=== PATIENT | female | born 1960 | race African-American/Black ===

== ENCOUNTER 2017-06-14 18:26 | Inpatient (IN) | payer BC ==
[~2017-06-14] VITALS: Ht 157.5 cm; Wt 58.0 kg
[2017-06-14 19:04] LABS: COLLECTION METHOD CLEAN CATCH
[2017-06-14 19:15] LABS: PH 5 (5-8); URINE APPEARANCE Hazy; URINE BILIRUBIN Negative (NEGATIVE); URINE BLOOD 2+ (NEGATIVE); URINE COLOR Yellow; URINE GLUCOSE Negative (NEGATIVE); URINE KETONE Trace (NEGATIVE); URINE LEUKOCYTE ESTERASE 1+ (NEGATIVE); URINE NITRATE Positive (NEGATIVE); URINE PROTEIN(semi-quant) 1+ (NEGATIVE); URINE UROBILINOGEN Negative (NEGATIVE)
[2017-06-14 19:22] LABS: MUCOUS Present /lpf; URINE BACTERIA Many /hpf
[2017-06-14 19:23] LABS: URINE RBC 0-2 /hpf
[2017-06-14 19:35] LABS: BASO # 0.1 (0.0-0.2); BASO % 0.4 % (0.0-2.0); EOS # 0.1 (0.0-0.7); EOS % 0.3 % (0-4.0); GRAN # 19.6 (1.4-6.5); GRAN % 83.1 % (42.2-75.2); HEMATOCRIT 41.1 % (37.0-47.0); HEMOGLOBIN 13.9 g/dl (12.5-16.0); LYMPH # 2.5 (1.2-3.4); LYMPH % 10.6 % (20.0-51.0); MEAN CELL VOLUME 99 fl (80.0-100.0); MEAN CORPUSCULAR HEMOGLOBIN 34 pg (27.0-31.0); MEAN CORPUSCULAR HGB CONC 34 g/dl (33.0-37.0); MEAN PLATELET VOLUME 11.6 fl (7.4-10.4); MONO # 1.2 (0.1-0.6); MONO % 5.1 % (1.7-9.3); PLATELET COUNT 144 K/mm3 (130-400); RED BLOOD COUNT 4.15 M/mm3 (4.10-5.30)
[2017-06-14] MEDS ORDERED: FISH OIL 500 M1 EAC1 PO (19:43)
[2017-06-14 20:08] LABS: ALBUMIN 4.4 gm/dL (3.5-5.0); BILIRUBIN,TOTAL 1.2 mg/dL (0.0-1.0); CALCIUM 9.6 mg/dL (8.4-10.2); CREATININE, serum 0.76 mg/dL (0.52-1.25); TOTAL PROTEIN 7.9 gm/dL (6.4-8.2)
[2017-06-14 20:25] LABS: C-REACTIVE PROTEIN 15.9 mg/dL (0.0-0.9)
[2017-06-14 22:35] VITALS: BP 96/63; PULSE 91; TEMP 97.7
[2017-06-15 04:08] VITALS: BP 94/61; PULSE 89; TEMP 98.9
[2017-06-15 06:20] LABS: BASO # 0.1 (0.0-0.2); BASO % 0.4 % (0.0-2.0); EOS # 0.1 (0.0-0.7); EOS % 0.6 % (0-4.0); GRAN % 81.3 % (42.2-75.2); LYMPH # 1.8 (1.2-3.4); MEAN CELL VOLUME 100 fl (80.0-100.0); MEAN CORPUSCULAR HGB CONC 33 g/dl (33.0-37.0); MEAN PLATELET VOLUME 11.1 fl (7.4-10.4); MONO # 1.3 (0.1-0.6); MONO % 7.1 % (1.7-9.3); PLATELET COUNT 187 K/mm3 (130-400); RED BLOOD COUNT 3.46 M/mm3 (4.10-5.30)
[2017-06-15 06:37] LABS: HEMATOCRIT 34.7 % (37.0-47.0); HEMOGLOBIN 11.4 g/dl (12.5-16.0); MEAN CORPUSCULAR HEMOGLOBIN 33 pg (27.0-31.0)
[2017-06-15 06:44] LABS: CALCIUM 8.9 mg/dL (8.4-10.2); CREATININE, serum 0.78 mg/dL (0.52-1.25)
[2017-06-15 08:03] VITALS: BP 100/61; PULSE 82; TEMP 98.7
[2017-06-15 10:35] VITALS: BP 96/60; PULSE 89; TEMP 98.6
[2017-06-15 15:52] VITALS: BP 105/64; PULSE 77; TEMP 97.9
[2017-06-15 20:12] VITALS: BP 112/74; PULSE 78; TEMP 98.4
[2017-06-16 00:04] VITALS: BP 91/55; PULSE 68; TEMP 98.8
[2017-06-16 03:39] VITALS: BP 109/58; PULSE 78; TEMP 98.7
[2017-06-16 06:31] LABS: BASO % 0.3 % (0.0-2.0); EOS # 0.1 (0.0-0.7); GRAN # 8.5 (1.4-6.5); GRAN % 71.2 % (42.2-75.2); LYMPH # 2.4 (1.2-3.4); MEAN CELL VOLUME 102 fl (80.0-100.0); MEAN CORPUSCULAR HGB CONC 32 g/dl (33.0-37.0); MONO # 0.9 (0.1-0.6); MONO % 7.2 % (1.7-9.3); PLATELET COUNT 178 K/mm3 (130-400); RED BLOOD COUNT 3.11 M/mm3 (4.10-5.30)
[2017-06-16 06:53] LABS: CALCIUM 8.5 mg/dL (8.4-10.2); CREATININE, serum 0.71 mg/dL (0.52-1.25); POTASSIUM 3.8 mmol/L (3.4-5.0)
[2017-06-16 06:58] LABS: HEMATOCRIT 31.6 % (37.0-47.0); HEMOGLOBIN 10.2 g/dl (12.5-16.0); MEAN CORPUSCULAR HEMOGLOBIN 33 pg (27.0-31.0)
[2017-06-16 08:39] VITALS: BP 119/64; PULSE 67; TEMP 98.6
[2017-06-16] MEDS ORDERED: FLAGYL500 MG PO (11:09)
[2017-06-16] MEDS ORDERED: CIPRO 500MG TA500 MG PO (11:09)
[2017-06-16] MEDS ORDERED: NORCO 325 MG-51 TAB PO (11:10)
[2017-06-16 11:52] VITALS: BP 101/62; PULSE 62; TEMP 98.8
== END 2017-06-16 13:15 | disposition home or self-care (01) | DRG 392 ==
LOC: COL.ER 18:26 → MEDICAL 21:22
PROVIDERS: Family Medicine; Nurse Practitioner; Physician Assistant
DX: A09 Infectious gastroenteritis and colitis, unspecified (principal); N39.0 Urinary tract infection, site not specified; B96.20 Unspecified Escherichia coli [E. coli] as the cause of diseases classified elsewhere; F17.210 Nicotine dependence, cigarettes, uncomplicated
CPT/HCPCS: 99222-AI; 99239; G0378; J1170; J1956; J2405; J7030; Q9967

== ENCOUNTER 2017-07-23 06:24 | Day surgery (SDC) | payer BC ==
[~2017-07-23] VITALS: Ht 154.9 cm; Wt 57.6 kg
[~2017-07-23 06:24] MED LIST: CIPRO 500MG TA500 MG PO; FISH OIL 500 M1 EAC1 PO; FLAGYL500 MG PO; NORCO 325 MG-51 TAB PO
[2017-07-23 06:38] VITALS: BP 118/94; PULSE 76; TEMP 98
[2017-07-23 07:45] VITALS: BP 105/68; PULSE 79; TEMP 97.4
[2017-07-23 08:00] VITALS: BP 101/80; PULSE 64
[2017-07-23 08:15] VITALS: BP 102/73; PULSE 78
[2017-07-23 08:30] VITALS: BP 105/75; PULSE 65
== END 2017-07-23 08:48 | disposition home or self-care (01) ==
LOC: SDCO 06:24
DX: Z12.11 Encounter for screening for malignant neoplasm of colon (principal); D64.9 Anemia, unspecified; Z88.6 Allergy status to analgesic agent
CPT/HCPCS: J2250; J2405; J3010; J7030

== ENCOUNTER 2018-02-23 19:39 | Emergency (ER) | payer BC ==
[~2018-02-23] VITALS: Ht 154.9 cm; Wt 54.5 kg
[2018-02-23 19:47] VITALS: TEMP 98.4
[2018-02-23 21:03] LABS: BASO # 0.1 (0.0-0.2); BASO % 0.6 % (0.0-2.0); EOS # 0.2 (0.0-0.7); EOS % 1.4 % (0-4.0); GRAN # 6.9 (1.4-6.5); GRAN % 63.6 % (42.2-75.2); HEMATOCRIT 41.7 % (37.0-47.0); HEMOGLOBIN 13.9 g/dl (12.5-16.0); LYMPH # 3.1 (1.2-3.4); LYMPH % 28.7 % (20.0-51.0); MEAN CELL VOLUME 99 fl (80.0-100.0); MEAN CORPUSCULAR HEMOGLOBIN 33 pg (27.0-31.0); MEAN CORPUSCULAR HGB CONC 33 g/dl (33.0-37.0); MEAN PLATELET VOLUME 10.3 fl (7.4-10.4); MONO # 0.6 (0.1-0.6); MONO % 5.5 % (1.7-9.3); PLATELET COUNT 281 K/mm3 (130-400); RED BLOOD COUNT 4.23 M/mm3 (4.10-5.30); REDCELL DISTRIBUTION WIDTH-CV 12.9 % (11.5-14.5)
[2018-02-23 21:20] LABS: ALBUMIN 4.5 gm/dL (3.5-5.0); BILIRUBIN,TOTAL 0.9 mg/dL (0.0-1.0); CALCIUM 10.2 mg/dL (8.4-10.2); CREATININE, serum 0.73 mg/dL (0.52-1.25); POTASSIUM 3.9 mmol/L (3.4-5.0); TOTAL PROTEIN 8.2 gm/dL (6.4-8.2)
[2018-02-23 21:21] LABS: C-REACTIVE PROTEIN 0.5 mg/dL (0.0-0.9)
[2018-02-23] MEDS ORDERED: PRILOSEC 20MG20 MG PO (21:55)
[2018-02-23 22:27] VITALS: BP 127/85; PULSE 62
== END 2018-02-23 22:29 | disposition home or self-care (01) ==
LOC: COL.ER 19:39
PROVIDERS: Family Medicine
DX: K21.9 Gastro-esophageal reflux disease without esophagitis (principal); Z87.891 Personal history of nicotine dependence
CPT/HCPCS: C9113; J7030

== ENCOUNTER 2019-12-17 14:08 | Emergency (ER) | payer BC ==
[~2019-12-17] VITALS: Ht 154.9 cm; Wt 60.5 kg
[~2019-12-17 14:08] MED LIST changes: +PRILOSEC 20MG20 MG PO
[2019-12-17 14:45] VITALS: TEMP 98.2
[2019-12-17 15:41] LABS: BASO # 0.1 (0.0-0.2); BASO % 0.6 % (0.0-2.0); EOS # 0.1 (0.0-0.7); EOS % 0.4 % (0-4.0); GRAN # 13.6 (1.4-6.5); LYMPH # 3.1 (1.2-3.4); LYMPH % 17.3 % (20.0-51.0); MEAN CELL VOLUME 97 fl (80.0-100.0); MEAN CORPUSCULAR HEMOGLOBIN 33 pg (27.0-31.0); MEAN CORPUSCULAR HGB CONC 34 g/dl (33.0-37.0); MEAN PLATELET VOLUME 10.1 fl (7.4-10.4); MONO # 1.1 (0.1-0.6); MONO % 6.3 % (1.7-9.3); PLATELET COUNT 241 K/mm3 (130-400); RED BLOOD COUNT 4.87 M/mm3 (4.10-5.30); REDCELL DISTRIBUTION WIDTH-CV 13.2 % (11.5-14.5)
[2019-12-17 15:45] LABS: COLLECTION METHOD CLEAN CATCH
[2019-12-17 15:53] LABS: ALBUMIN 3.8 gm/dL (3.5-5.0); BILIRUBIN,TOTAL 0.9 mg/dL (0.0-1.0); C-REACTIVE PROTEIN 2.9 mg/dL (0.0-0.9); CALCIUM 8.9 mg/dL (8.4-10.2); CREATININE, serum 1.04 (0.52-1.25); POTASSIUM 4.2 mmol/L (3.4-5.0); TOTAL PROTEIN 7.2 gm/dL (6.4-8.2)
[2019-12-17 16:00] LABS: BUDDING YEAST Present /hpf; MUCOUS Present /lpf; PH 5 (5-8); URINE APPEARANCE Cloudy; URINE BACTERIA Moderate /hpf; URINE BILIRUBIN Negative (NEGATIVE); URINE BLOOD 1+ (NEGATIVE); URINE COLOR Yellow; URINE GLUCOSE Negative (NEGATIVE); URINE KETONE Trace (NEGATIVE); URINE LEUKOCYTE ESTERASE 3+ (NEGATIVE); URINE NITRATE Positive (NEGATIVE); URINE PROTEIN(semi-quant) 1+ (NEGATIVE); URINE UROBILINOGEN Negative (NEGATIVE)
[2019-12-17] MEDS ORDERED: FLAGYL500 MG PO ×2 (17:16)
[2019-12-17] MEDS ORDERED: CIPRO 500MG TA500 MG PO ×2 (17:16)
[2019-12-17] MEDS ORDERED: AMOXICILLIN 8751 TAB PO (17:30)
[2019-12-17] MEDS ORDERED: ZOFRAN 4MG T4 MG/TAB PO (17:30)
[2019-12-17] MEDS ORDERED: NORCO 325 MG-51 TAB PO (17:30)
[2019-12-17 17:42] VITALS: BP 121/88; PULSE 81
== END 2019-12-17 17:50 | disposition home or self-care (01) ==
LOC: COL.ER 14:08
PROVIDERS: Emergency Medicine
DX: K52.9 Noninfective gastroenteritis and colitis, unspecified (principal); N39.0 Urinary tract infection, site not specified; F17.210 Nicotine dependence, cigarettes, uncomplicated; Z32.02 Encounter for pregnancy test, result negative; Z88.6 Allergy status to analgesic agent
CPT/HCPCS: J0696; J1885; Q9967

== ENCOUNTER 2020-04-08 09:57 | Emergency (ER) | payer BC ==
[~2020-04-08] VITALS: Ht 154.9 cm; Wt 59.1 kg
[~2020-04-08 09:57] MED LIST changes: +AMOXICILLIN 8751 TAB PO; +ZOFRAN 4MG T4 MG/TAB PO
[2020-04-08 10:10] VITALS: TEMP 97.8
[2020-04-08 11:25] LABS: HEMATOCRIT 48.4 % (37.0-47.0); HEMOGLOBIN 16.4 g/dl (12.5-16.0); MEAN CELL VOLUME 98 fl (80.0-100.0); MEAN CORPUSCULAR HEMOGLOBIN 33 pg (27.0-31.0); MEAN CORPUSCULAR HGB CONC 34 g/dl (33.0-37.0); MEAN PLATELET VOLUME 10.3 fl (7.4-10.4); PLATELET COUNT 221 K/mm3 (130-400); RED BLOOD COUNT 4.95 M/mm3 (4.10-5.30); REDCELL DISTRIBUTION WIDTH-CV 13.8 % (11.5-14.5)
[2020-04-08 11:32] LABS: PROTHROMBIN TIME 11.3 SECONDS (9.7-12.8)
[2020-04-08 11:40] LABS: ALBUMIN 4.2 gm/dL (3.5-5.0); BILIRUBIN,TOTAL 0.9 mg/dL (0.0-1.0); C-REACTIVE PROTEIN 1.1 mg/dL (0.0-0.9); CALCIUM 9.3 mg/dL (8.4-10.2); CREATININE, serum 1.18 (0.52-1.25); POTASSIUM 4.4 mmol/L (3.4-5.0); TOTAL PROTEIN 7.7 gm/dL (6.4-8.2)
[2020-04-08 11:45] LABS: BAND 6 % (0-10); LYMPHOCYTE 6 % (20.0-51.0); NEUTROPHILS 86 % (42.0-75.2); PLATELET ESTIMATE NORMAL (NORMAL)
[2020-04-08 11:50] LABS: TROPONIN-I 0.874 ng/mL (0.000-0.035)
[2020-04-08 16:33] VITALS: BP 123/85; PULSE 83
== END 2020-04-08 16:37 | disposition short-term general hospital (02) ==
LOC: COL.ER 09:57 → ICU 13:09 → COL.ER 13:09
PROVIDERS: Emergency Medicine
DX: I21.4 Non-ST elevation (NSTEMI) myocardial infarction (principal); N28.0 Ischemia and infarction of kidney; F17.200 Nicotine dependence, unspecified, uncomplicated; Z88.8 Allergy status to other drugs, medicaments and biological substances
CPT/HCPCS: 99222-AI; J1170; J1630; J1644; J2060; J2405; J2704; J3010; J7030; Q9967

== ENCOUNTER 2020-07-29 16:05 | Outpatient (RCR) | payer BC | END 2020-08-16 06:04 | disposition home or self-care (01) | LOC: COL.CR 16:05 | DX: Z48.812 Encounter for surgical aftercare following surgery on the circulatory system (principal); I74.10 Embolism and thrombosis of unspecified parts of aorta; I08.1 Rheumatic disorders of both mitral and tricuspid valves; I25.2 Old myocardial infarction; Q21.1 Atrial septal defect; Z79.01 Long term (current) use of anticoagulants ==

== ENCOUNTER → 2021-07-24 | Outpatient (RCR) | payer OTHER | END | disposition home or self-care (01) | LOC: WSOH | DX: M22.2X1 Patellofemoral disorders, right knee (principal); Y99.0 Civilian activity done for income or pay; Z98.890 Other specified postprocedural states ==